=== PATIENT | male | born 1980 | race Caucasian/White ===

== ENCOUNTER 2017-01-22 23:04 | Emergency (ER) | payer SELFPAY ==
[~2017-01-22] VITALS: Ht 180.3 cm; Wt 96.3 kg
[2017-01-22 23:04] VITALS: TEMP 97.5
--- OUTSIDE RECORDS SUMMARY | 2017-01-22 23:08 | XMS REPORT | Continuity of Care Document ---
Author Author [facility] Organization [facility] Address Unknown Phone Unavailable Support Name Relationship Address Phone BALTAZAR PALUMBO II, MD Caregiver [address] [place] [address] Unavailable MABEL FRANCOIS DO Caregiver [address] [place] [address] [place] [address] Unavailable Insurance Providers Guarantor Alvaro Pierre Address [address] [place] [address] Email DENIED Payer Self Pay Subscriber's Name IgnacioAlvaro Relationship 19 Self Chief Complaint and Reason for Visit Chief Complaint Abdominal Pain Reason for Visit Patient left without being seen Problems Active Problems Medical Problem Onset Date Status Patient left without being seen Unknown Acute Medications No medication information available. Social History No social history. Hospital Discharge Instructions No hospital discharge instructions. Plan of Care Discharge Date 10/09/16 1:08am Disposition 07 LEFT W/O BEING SEEN Condition at Discharge Left Without Being Seen Prescriptions See Medication Section Referrals BALTAZAR PALUMBO II, MD Address: [address] [place] [address] Functional Status No functional status results. Allergies, Adverse Reactions, Alerts No allergy information available. Immunizations No immunization records. Vital Signs No known vital signs results. Results No known relevant diagnostic tests, laboratory data and/or discharge summary. Procedures No known history of procedures. Encounters Encounter Location Arrival/Admit Date Discharge/Depart Date Attending Provider Departed Emergency Room [facility] 10/09/16 12:59am 10/09/16 1: 08am MABEL FRANCOIS DO Recent Diagnosis
[2017-01-22] MEDS ORDERED: DiphenhydrAMINE 50 MG/ML INJECTION IV ONE (23:15)
[2017-01-22] MEDS ORDERED: NORMAL SALINE 1,000 ML IV ONE (23:15)
[2017-01-22] MEDS ORDERED: KETOROLAC 30mg/ml INJECTION IV ONE (23:15)
[2017-01-22] MEDS ORDERED: PROCHLORPERAZINE 10mg/2ml INJECTION IV ONE (23:15)
--- NOTE | 2017-01-22 23:20 | ERPDOC ---
Departure Disposition Decision Date: January 23, 2017 Disposition Decision Time: : Disposition: 01 DISCHARGED HOME, SELF-CARE Impression Impression Impression: Primary Impression: Amphetamine abuse Additional Impression: Abdominal pain Abdominal location: generalized Qualified Codes: R10.84 - Generalized abdominal pain Severity: Severe Condition: Improved Seen By: Physician only Referrals: BALTAZAR PALUMBO II, MD (Family) Patient Instructions: Methamphetamine Abuse (ED) Problems/Meds/Labs Reviewed?: Yes Medications reviewed and manag: Yes Additional Instructions: Stop drug use Avoid methamphetamine for the rest of your life Compazine 10 mg one tablet up to 4 times daily as needed for cramps Drink at least 2 quarts of fluid daily Follow up care ordered?: Yes Mental Status: Alert Scripts Prochlorperazine Maleate (Compazine) 10 Mg Tablet 10 MG PO QID, #30 TAB 0 Refills Prov: KALI MOROCHO MD 01/23/17 HPI - Abdominal Pain General Stated Complaint: ABD PAIN Time Seen by Provider: 23:07 Source: patient History/Exam Limitations: no limitations HPI - Abdominal Pain Initial Comments 30 minutes ago the patient had sudden onset of severe crampy diffuse abdominal pain throughout his abdomen. Patient frequently has these episodes, but this is the worst is ever been. On further interrogation the patient admits routine if not daily use of methamphetamines, but states he doesn't drink alcohol or use any other drugs. Patient has never been evaluated by a physician for these pains, and he decided to come tonight because the pains would not stop and were worse that he's ever had them. Occurred At: home Onset: Rapid Duration: 1/2 hour Quality: cramping Location: generalized abdomen Radiation: no radiation Associated Symptoms: nausea/vomiting, DENIES: back pain, chest pain, diaphoresis, fatigue, fever/chills, headache, heartburn, rash, shortness of breath, swelling/mass in abdomen, syncope, weakness Hx of Similar Symptoms: Yes Allergies: Coded Allergies: Sulfa (Sulfonamide Antibiotics) (Verified Allergy, Unknown, 01/22/17) Past History Past Medical History Psychological: drug abuse (methamphetamine) Surgical History Denies Surgeries Social History Smoking Status: Current every day smoker Does patient use chewing tobac: No Second Hand Exposure: No Substance Use Type: methamphetamine Alcohol Intake: none Record Review Pertinent history updated: Yes Review of Systems Constitutional Constitutional: DENIES: appetite decrease, appetite increase, chills, dizziness , fever, weakness ENMT Ears: DENIES: pain Hearing: DENIES: hearing loss, tinnitus Balance: DENIES: vertigo Mouth/Throat: DENIES: change in swallowing, change in voice, hoarsness, painful swallowing, sore throat Cardiovascular Cardiac: DENIES: chest pain, dyspnea on exertion Rhythm/Rate: DENIES: irregular beat, palpitations, tachycardia Vascular: DENIES: pedal edema Pulmonary Respiratory: DENIES: cough, dyspnea, pleuritic chest pain GI Upper Abdomen: nausea, pain, DENIES: dysphagia, food intolerances, heartburn/ indigestion, hematemesis, vomiting Lower Abdomen: pain, DENIES: blood in stool, carlos-colored stools, constipation , diarrhea, melena, painful BM General: DENIES: burning, dysuria, frequency, pain, urgency Musculoskeletal General: DENIES: cramps, joint pain, joint swelling, pain, weakness Integumentary Skin: DENIES: rash, sores Physical Exam General General Nourishment: well nourished, well developed, appears stated age, no acute distress Distress Description Patient is hysterically dramatic on his presentation but with calm direction the patient can be guided through the history and physical. General Body Habitus: disheveled Vitals and Pain Weight: Kilograms: Height (feet): Height (inches): Triage Pain Scale: RN VS reviewed by Provider: Yes Normal Exams: Head: Normocephalic w/o trauma Eyes: Pupils are PERRLA w/ EOMI, No scleral icterus, irritation, or foreign bodies noted ENMT: No facial trauma, nasal exudates, pharyngeal erythema, or exudates are noted Neck: Full range of motion, without adenopathy, JVD, bruits or thyromegaly Chest/Resp: Clear all maki, with good airflow, and symmetry bilaterally CV: Regular rate and rhythm, without murmur or gallop, Pulses 2+ all extremities, capillary refill, <2 seconds all ext., no pedal edema noted Lymphatic: No lymphadenopathy, or lymphedema noted Musculoskeletal: No tenderness, or deformity noted, good range of motion, all extremities Integumentary: No rashes, hives, or bruising noted, hair and nails, without abnormality Neurologic: Patient is alert, and oriented, cranial nerves, motor/sensory/ cerebellar, exams w/o gross deficits, to observation Psychiatric: Patient exhibits, appropriate attention, emotion and affect Abdomen (brief) Abdominal Brief: FOUND: bowel normo active x4, soft, tender (moderate diffuse abdominal tenderness, no guarding no rebounding, however the patient's physical exam is significantly hindered by his histrionic presentation) Progress Results/Orders Orders Procedure Category Date Status Time Iv Lock (Ed Only) EDM 01/22/17 Transmitted 23:13 Cbc W/Auto LAB 01/22/17 Complete Diff-Reflex Manual Cmp - Comprehensive LAB 01/22/17 Complete Metabolic Lipase LAB 01/22/17 Complete Ua, Dip Wreflex LAB 01/22/17 Complete [employer] 23:13 Drug Screen LAB 01/22/17 Complete Urine-Test At [facility] 23:13 Normal Saline (Normal PHA 01/22/17 Complete Saline Iv) 23:15 Ketorolac (Toradol) PHA 01/22/17 Complete 23:15 Prochlorperazine PHA 01/22/17 Complete (Compazine) 23:15 Diphenhydramine PHA 01/22/17 Complete (Benadryl) 23:15 Lab Results Laboratory Tests Test 01/22/17 23:18 01/23/17 00:39 White Blood Count 11.0T/MM3 Red Blood Count 5.16M/MM3 Hemoglobin 15.3GM/DL Hematocrit 45.0% Mean Corpuscular Volume 87.2UM3 Mean Corpuscular Hemoglobin 29.7UUG Mean Corpuscular Hemoglobin Concent 34.0GM/DL RDW Standard Deviation 42.5FL Platelet Count 298T/MM3 Mean Platelet Volume 10.4UM3 Immature Granulocyte % (Auto) 0.2% Neutrophils (%) (Auto) 42.9% Lymphocytes (%) (Auto) 44.8% Monocytes (%) (Auto) 9.4% Eosinophils (%) (Auto) 2.3% Basophils (%) (Auto) 0.4% Absolute Immature Granulocyte (auto 0.02T/MM3 Absolute Neutrophils (auto) 4.7T/MM3 Absolute Lymphocytes (auto) 4.9T/MM3 Absolute Monocytes (auto) 1.0T/MM3 Absolute Eosinophils (auto) 0.3T/MM3 Absolute Basophils (auto) 0.0T/MM3 Turbidity < 20 Sodium Level 151MEQ/L Potassium Level 3.9MEQ/L Chloride Level 108MEQ/L Carbon Dioxide Level 28MEQ/L Anion Gap 15MEQ/L Blood Urea Nitrogen 9.0MG/DL Creatinine 0.9MG/DL Glomerular Filtration Rate Calc 96 BUN/Creatinine Ratio 10RATIO Glucose Level 91MG/DL Calculated Osmolality 289MOSM/KG Calcium Level 9.8MG/DL Total Bilirubin 0.60MG/DL Icterus Index < 2 Aspartate Amino Transf (AST/SGOT) 89U/L Alanine Aminotransferase (ALT/SGPT) 57U/L Alkaline Phosphatase 76U/L Total Protein 7.3G/DL Albumin 4.5G/DL Globulin 2.8G/DL Albumin/Globulin Ratio 1.6RATIO Lipase 130U/L Chemistry Specimen Hemolysis < 15 Urine Collection Type Cleancatch-midstream Urine Color Yellow Urine Turbidity Slt cldy Urine pH 8.0 Urine Specific [place] 1.005 Urine Protein Trace Urine Glucose (UA) Negative Urine Ketones Negative Urine Blood Negative Urine Nitrite Negative Urine Bilirubin Negative Urine Urobilinogen 4EU/DL Urine Leukocyte Esterase Negative Urinalysis Comment Microscopic not ind. Urine Opiates Screen NegativeNG/ML Urine Oxycodone Screen NegativeNG/ML Urine Methadone Screen NegativeNG/ML Urine Propoxyphene Screen NegativeNG/ML Urine Barbiturates Screen NegativeNG/ML Urine Tricyclic Antidepressants NegativeNG/ML Urine Phencyclidine Screen NegativeNG/ML Urine Amphetamines Screen NegativeNG/ML Urine Methamphetamines Screen PositiveNG/ML Urine Benzodiazepines Screen NegativeNG/ML Urine Cocaine Screen NegativeNG/ML Urine Cannabinoids Screen NegativeNG/ML Urine Drug Screen Confirmation Sent out Urine Drug Screen Information Pending Medications Current ED Medications Sodium Chloride (Normal Saline IV) 1,000 ml @ 0 mls/hr Q0M ONCE IV Last administered on 01/22/17 23:24; Start 01/22/17 at 23:15; Stop 01/22/17 at 23:16 ; Status DC Ketorolac Tromethamine (Toradol) 30 mg O ONCE IV Last administered on 23:24; Start 01/22/17 at 23:15; Stop 01/22/17 at 23:16; Status DC Prochlorperazine Edisylate (Compazine) 10 mg O ONCE IV Last administered on 23:30; Start 01/22/17 at 23:15; Stop 01/22/17 at 23:16; Status DC Diphenhydramine HCl (Benadryl) 50 mg O ONCE IV Last administered on 01/22/17t 23:26; Start 01/22/17 at 23:15; Stop 01/22/17 at 23:16; Status DC Progress Progress Patient is given 1 L normal saline IV fluid bolus, Toradol 30 mg, Compazine 10 mg, and Benadryl 50 mg IV - to relief CBC - normal CMP/L - normal UA/UDS - normal/methamphetamine positive KALI MOROCHO MD January 22, 2017 23:20
[2017-01-22 23:28] LABS: BASOPHILS % (AUTO) 0.4 % (0-2); EOSINOPHILS # (AUTO) 0.3 T/MM3 (0-0.5); EOSINOPHILS % (AUTO) 2.3 % (0-4); HGB - HEMOGLOBIN 15.3 GM/DL (13.5-17.5); IMMATURE GRANULOCYTE # (AUTO) 0.02 T/MM3 (0.00-0.03); IMMATURE GRANULOCYTE % (AUTO) 0.2 % (0.0-0.5); LYMPHOCYTES # (AUTO) 4.9 T/MM3 (1-4.8); LYMPHOCYTES % (AUTO) 44.8 % (23-45); MEAN CORPUSCULAR HGB 29.7 UUG (26-34); MEAN CORPUSCULAR VOLUME 87.2 UM3 (80-100); MEAN PLATELET VOLUME 10.4 UM3 (9.4-12.4); MONOCYTES % (AUTO) 9.4 % (0-9.0); NEUTROPHILS #(AUTO)-ABSOLUTE 4.7 T/MM3 (1.8-7.7); NEUTROPHILS % (AUTO) 42.9 % (33-66); RED BLOOD COUNT 5.16 M/MM3 (4.50-5.90)
[2017-01-22 23:34] LABS: ALBUMIN 4.5 G/DL (3.5-5.0); ALBUMIN/GLOBULIN RATIO 1.6 RATIO (1.1-2.2); ALKALINE PHOSPHATASE 76 U/L (38-126); ALT (SGPT) 57 U/L (21-72); ANION GAP 15 MEQ/L (5-15); AST (SGOT) 89 U/L (17-59); BUN/CREATININE RATIO 10 RATIO (6-26); CALCIUM 9.8 MG/DL (8.4-10.2); CHLORIDE 108 MEQ/L (98-107); CO2 - CARBON DIOXIDE 28 MEQ/L (22-30); CREATININE 0.9 MG/DL (0.8-1.5); GLOMERULAR FILTRATION RATE 96; GLUCOSE 91 MG/DL (75-110); LIPASE 130 U/L (23-300); POTASSIUM 3.9 MEQ/L (3.6-5); SODIUM 151 MEQ/L (134-144); TOTAL PROTEIN 7.3 G/DL (6.3-8.2)
[2017-01-23] MEDS ORDERED: NO MEDS (00:44)
[2017-01-23 01:11] LABS: AMPHETAMINE SCREEN,URINE NEGATIVE; BARBITURATE SCREEN,URINE NEGATIVE; BENZODIAZEPINES SCREEN,URINE NEGATIVE; CANNABINOID SCREEN,URINE NEGATIVE; COCAINE SCREEN,URINE NEGATIVE; METHADONE SCREEN, URINE NEGATIVE; METHAMPHETAMINE SCREEN, URINE POSITIVE; OPIATE SCREEN,URINE NEGATIVE; PHENCYCLIDINE SCREEN,URINE NEGATIVE; TRICYCLIC ANTIDEPRESSANT,URINE NEGATIVE
[2017-01-23 01:12] LABS: COLOR,URINE YELLOW (YELLOW)
[2017-01-23 01:13] LABS: BLOOD, URINE NEGATIVE (NEGATIVE); LEUKOCYTE ESTERASE ,URINE NEGATIVE (NEGATIVE); NITRITE,URINE NEGATIVE (NEGATIVE); UROBILINOGEN,URINE 4 EU/DL (NORMAL)
[2017-01-23] MEDS ORDERED: PROC-14 PO (01:28)
[2017-01-23 01:45] VITALS: BP 123/80; PULSE 78; RESP 20; O2SAT 96
[2017-01-23] MEDS ORDERED: PROCHLORPERAZINE 10MG (PrePack) SENT HOME ONE (01:45)
--- NOTE | 2017-01-23 01:45 | NUR ---
DEPART PT AND MOTHER ARE GIVEN DISMISSAL INSTRUCTIONS WITH VERBAL UNDERSTANDING. PT LEAVES AMBULATORY WITH HIS MOTHER. PT'S ABD PAIN IMPROVED SINCE HE FIRST ARRIVED
== END 2017-01-23 01:45 | disposition home or self-care (01) ==
LOC: ED 23:04
DX: R10.84 Generalized abdominal pain (principal); F15.10 Other stimulant abuse, uncomplicated
CPT/HCPCS: 80053; 80306; 81003; 83690; 85025